=== PATIENT | male | born 1995 | race Caucasian/White ===

== ENCOUNTER 2016-11-21 07:43 | Observation (INO) | payer OTHER ==
[~2016-11-21] VITALS: Ht 193 cm; Wt 129.9 kg
[~2016-11-21 07:43] MED LIST: BACITRACIN TOP OINT 15 GM TUBE ONE; DIPH25TA2 PO; LIDOCAINE 1%/EPINEPHrine 1:100,000 SOLN 30 ML VIAL ONE; OXYMETAZOLINE HCL 0.05% 15 ML NASAL SPRAY ONE; PRED-503 PO; ZANT150T2 PO
[2016-11-21] MEDS ORDERED: OMEP10CA PO (08:49)
[2016-11-21] MEDS ORDERED: POVIDONE IODINE 5% (ANTISEPSIS KIT) 4 APPLICATIONS EACH NARE PRN (09:00)
[2016-11-21] MEDS ORDERED: SODIUM CHLORID 0.9% 500 ML IV PRN (09:00)
[2016-11-21] MEDS ORDERED: METOPROLOL TARTRATE 25 MG TAB PO PRN (09:00)
[2016-11-21] MEDS ORDERED: CHLORHEXIDINE GLUCONATE 2 % 1 PACK (2 CLOTHS) TOPICAL PRN (09:00)
[2016-11-21] MEDS ORDERED: INSULIN HUMAN REGULAR 1,000 UNITS/10 ML VIAL SQ PRN (09:00)
[2016-11-21] MEDS ORDERED: LACTATED RINGER'S 1000 ML IV PRN (09:00)
[2016-11-21 09:13] VITALS: BP 144/85; PULSE 68; RESP 16; TEMP 98.2; O2SAT 98
[2016-11-21] MEDS ORDERED: AMPICILLIN/SULBAC 3 GM/NS 100 ML IV SCH ×2 (09:15)
[2016-11-21] MEDS ORDERED: MIDAZOLAM HCL 2 MG/2 ML VIAL ONE (09:24)
[2016-11-21] MEDS ORDERED: *MEPERIDINE 25 MG INJ VIAL PERIprocedural Use ONLY IV ONE (11:18)
[2016-11-21] MEDS ORDERED: LABETALOL HCL IV PUSH ONE (11:35)
[2016-11-21] MEDS ORDERED: *morphine SULFATE 4 MG/ML PERIprocedure ONLY IV PUSH ONE (11:40)
[2016-11-21] MEDS ORDERED: hydrALAZINE HCL 20 MG/ML VIAL IV PUSH ONE (11:56)
[2016-11-21] MEDS ORDERED: ONDANSETRON HCL 4 MG/2 ML VIAL IV PUSH ONE ×2 (12:00)
[2016-11-21] MEDS ORDERED: PROPOFOL 200 MG/20 ML AMP IV ONE ×2 (12:00)
[2016-11-21] MEDS ORDERED: ACETAMINOPHEN/HYDROcodone 325 MG/5 MG TAB ONE ×2 (15:10→15:24)
[2016-11-21] MEDS ORDERED: DO NOT ADM ANY ANTICOAGULANT DRUGS PRN (15:45)
[2016-11-21] MEDS ORDERED: hydrALAZINE HCL 20 MG/ML VIAL IV PRN (15:45)
[2016-11-21] MEDS ORDERED: ONDANSETRON HCL 4 MG/2 ML VIAL IV PUSH PRN (15:45)
[2016-11-21 15:58] VITALS: O2SAT 98
[2016-11-21] MEDS: LACTATED RINGER'S 1000 ML INJ 1,000 ML IV SCH (16:44)
[2016-11-21] MEDS: AMPICILLIN/SULBAC 3 GM/NS 100 ML IV SCH ×4 (16:45→23:31)
[2016-11-21 17:20] VITALS: BP 164/92; PULSE 76; RESP 18; TEMP 97.3; O2SAT 96
[2016-11-21] MEDS: ACETAMINOPHEN/HYDROcodone 325 MG/5 MG TAB PO PRN ×2 (18:39→23:32)
[2016-11-21 20:00] VITALS: BP 165/99; PULSE 93; RESP 20; TEMP 98.5; O2SAT 98
[2016-11-21 20:40] VITALS: O2SAT 99
[2016-11-22] VITALS: BP 184/98; PULSE 65; RESP 20; TEMP 96.6; O2SAT 96
[2016-11-22] MEDS ORDERED: ENALAPRIL MALEATE 10 MG TAB PO SCH (01:00)
[2016-11-22] MEDS: LACTATED RINGER'S 1000 ML INJ 1,000 ML IV SCH (03:15)
[2016-11-22 04:00] VITALS: BP 187/102; PULSE 55; RESP 18; TEMP 97.2; O2SAT 96
[2016-11-22] MEDS: AMPICILLIN/SULBAC 3 GM/NS 100 ML IV SCH ×2 (05:41)
[2016-11-22] MEDS: ACETAMINOPHEN/HYDROcodone 325 MG/5 MG TAB PO PRN (05:42)
[2016-11-22 08:00] VITALS: BP 182/99; PULSE 55; RESP 18; TEMP 97.2; O2SAT 99
--- NOTE | 2016-12-07 10:02 | MP ---
cc: GIOVANY CASTAÑEDA M.D. DATE OF SURGERY: November 21, 2016 SURGEON Giovany Castañeda MD PREOPERATIVE DIAGNOSIS 1. Nasal airway obstruction. 2. Nasoseptal deviation. 3. Hypertrophy of inferior turbinates. 4. Obstructive sleep apnea. POSTOPERATIVE DIAGNOSIS 1. Nasal airway obstruction. 2. Nasoseptal deviation. 3. Hypertrophy of inferior turbinates. 4. Obstructive sleep apnea. OPERATION PERFORMED 1. Open repair nasal septal fracture. 2. Bilateral submucosal resection of inferior turbinates.. INDICATIONS Documented in the history and physical. DESCRIPTION OF OPERATION The patient was taken to OR #2 and placed in the supine position. Following induction of general anesthesia and intubation the nose was packed bilaterally with cotton pledgets saturated in 0.05% Oxymetazoline. The septal mucosa and inferior turbinates were injected with a total of 9 mL of 1% Xylocaine with epinephrine 1:100,000. He was then prepped and draped for surgery. Nasal packing was removed and a aristides-transfixion incision was made in the left nasal vestibule. Through this incision the septal mucosa was elevated bilaterally as far as the junction of the bony and cartilaginous septum. This exposed the quadrangular cartilage which showed evidence of old septal fracture and was very thick, twisted and irregular with numerous points and spurs along old lines of fracture. A cumulative area of 2 x 3 cm was removed preserving 1.5 cm dorsal and caudal cartilaginous struts. When this was completed the mucosa was elevated from the bony septum and the maxillary crest and these were removed and using Vincent Araujo forceps on the bony septum and a 6-mm Salma chisel on the maxillary crest. The incision was then closed using a running suture of 4-0 Chromic and the mucosal layers of septum were approximated to each other with a quilting stitch of 4-0 plain gut. Inferior turbinates were addressed next, they were fractured out medially and stab incision opened on the anterior ends of each. Then using a [facility] elevator a soft tissue pocket was developed within the inferior turbinate along the medial surface of the conchal bone. Then using the Olympus 2.9 mm turbinate debrider blade, this was advanced into the pocket and then activated as it was withdrawn along the medial surface of the conchal bone, removing soft tissue from the submucosal area of the inferior turbinate. We then returned to the pocket and activated once again, this time with the bipolar cautery. Additional cautery was applied to the incision site of the anterior end of each of the inferior turbinates. They were then re-lateralized to the lateral nasal wall and the nose was packed with 5.5 mm rapid rhino packs, each was inflated with 5 mm of air. The procedure was then terminated. The patient was reversed from anesthesia and taken to recovery in good condition. There were no complications. Blood loss was 50 mL. MD ORLANDO Harvey/TLL /1:30 PM /9:48 AM
== END 2016-11-22 08:57 | disposition home or self-care (01) ==
LOC: PHSDC 07:43 → UNDOADMOB 10:28 → HSDI 10:28 → PH3A 14:59
PROVIDERS: ADMIT Otolaryngology; ATTEND Otolaryngology
DX: J98.8 Other specified respiratory disorders (principal); J34.2 Deviated nasal septum; J34.3 Hypertrophy of nasal turbinates; G47.33 Obstructive sleep apnea (adult) (pediatric); S02.2XXS Fracture of nasal bones, sequela
CPT/HCPCS: 00160; 21335; 30140; 94762; G0378; J0295; J0360; J2175; J2250; J2270; J2405; J3010; J7120